=== PATIENT | female | born 1940 | race Caucasian/White ===

== ENCOUNTER 2016-08-29 18:36 | Emergency (ER) | payer OTHER ==
[2016-08-29 18:43] VITALS: BP 169/92; PULSE 78; TEMP 98; BMI 31.3
--- NOTE | 2016-08-29 19:26 | PDOC ---
History of Present Illness - General History Source: Patient Exam Limitations: No Limitations - History of Present Illness Initial Comments: 08/29/16 19:27 The patient is a 76 year old female, with a significant past medical history of psoriatic arthritis, fibromyalgia, HTN, , who presents to the emergency department with blood in her left eye. The patient reports her eye started to fill with blood while she was conversing with her daughter. She denies her symptoms being brought on by a sneeze. She denies being on any blood thinners. She denies any visual changes. She denies any injury or trauma to her eye. She denies recent fevers, chills, headache or dizziness. She denies recent nausea, vomit, diarrhea or constipation. She denies recent dysuria, frequency, urgency or hematuria. She denies recent chest pain or shortness of breath. Allergies: NKA Past surgical history: None reported. <Elan Jones - Last Filed: 08/29/16 19:27> <Alvaro Hankins - Last Filed: 08/30/16 05:19> - General Chief Complaint: Eye Problem Stated Complaint: BLOOD IN EYE Time Seen by Provider: 08/29/16 19:25 Past History <Elan Jones - Last Filed: 08/29/16 19:27> - Past Medical History Thyroid Disease: Yes Other medical history: FIBROMYALGA - Psycho/Social/Smoking Cessation Hx Anxiety: No Suicidal Ideation: No Smoking History: Never smoked Hx Alcohol Use: No Drug/Substance Use Hx: Yes Substance Use Type: Alcohol <Alvaro Hankins - Last Filed: 08/30/16 05:19> - Past Medical History Allergies/Adverse Reactions: Allergies Allergy/AdvReac Type Severity Reaction Status Date / Time No Known Allergies Allergy Unverified 08/29/16 19:24 Home Medications: Ambulatory Orders Amlodipine Besylate 5 mg PO DAILY 08/29/16 Atenolol 08/29/16 Cyclobenzaprine HCl [Flexeril 10 mg] 10 mg PO HS 08/29/16 Cyclosporine [Restasis] 1 each OP DAILY 08/29/16 Levothyroxine Sodium [Synthroid] 88 mcg PO DAILY 08/29/16 Review of Systems - Review of Systems Able to Perform ROS?: Yes Comments:: 08/29/16 19:27 GENERAL/CONSTITUTIONAL: No: fever, chills, weakness, loss of appetite. HEAD, EYES, EARS, NOSE AND THROAT: +blood in the left eye. No: change in vision , ear pain, discharge, sore throat, throat swelling. CARDIOVASCULAR: No: chest pain, lightheadedness, palpitations, syncope RESPIRATORY: No: cough, shortness of breath, wheezing, hemoptysis, stridor. GASTROINTESTINAL: No: nausea, vomiting, diarrhea, abdominal cramping, rectal bleeding, constipation. GENITOURINARY: No: dysuria, hematuria, frequency, urgency, flank pain. MUSCULOSKELETAL: No: back pain, neck pain, joint pain, muscle swelling or pain SKIN : No: lesions, pallor, rash or easy bruising. NEUROLOGIC: No: headache, vertigo, paresthesias, weakness ENDOCRINE: No: unexplained weight gain or loss HEMATOLOGIC/LYMPHATIC: No: anemia, easy bleeding, swelling nodes. <Elan Jones - Last Filed: 08/29/16 19:27> *Physical Exam - Vital Signs Last Vital Signs Temp Pulse Resp BP Pulse Ox 98 F 78 18 169/92 100 08/29/16 18:37 08/29/16 18:37 08/29/16 18:37 08/29/16 18:37 08/29/16 18:37 - Physical Exam Comments: 08/29/16 19:28 GENERAL: The patient is in no acute distress. HEAD: Normal with no signs of trauma. EYES: PERRLA, EOMI, sclera anicteric, conjunctiva clear. ENT: 1cm subconjunctival hemorrhage. Ears normal, nares patent, oropharynx clear without exudates. Moist mucous membranes. NEUROLOGICAL: Cranial nerves II through XII grossly intact. Normal speech. No focal neurological deficits. MUSCULOSKELETAL: Back non-tender to palpation, no CVA tenderness SKIN: Warm, Dry, normal turgor, no rashes or lesions noted. <Elan Jones - Last Filed: 08/29/16 19:27> - Vital Signs Last Vital Signs Temp Pulse Resp BP Pulse Ox 98 F 78 18 169/92 100 08/29/16 18:37 08/29/16 18:37 08/29/16 18:37 08/29/16 18:37 08/29/16 18:37 <Alvaro Hankins - Last Filed: 08/30/16 05:19> Medical Decision Making - Medical Decision Making 08/30/16 05:18 subconjunctival hemorrhage no acute mgmt needed <Alvaro Hankins - Last Filed: 08/30/16 05:19> *DC/Admit/Observation/Transfer - Attestations Scribe Attestion: 08/29/16 19:28 Documentation prepared by Elan Jones, acting as medical director occupational health for Alvaro Hankins MD. <Elan Jones - Last Filed: 08/29/16 19:27> <Alvaro Hankins - Last Filed: 08/30/16 05:19> Diagnosis at time of Disposition: Subconjunctival hemorrhage Qualifiers: Laterality: left Qualified Code(s): H11.32 - Conjunctival hemorrhage, left eye - Discharge Dispostion Disposition: HOME Condition at time of disposition: Stable - Patient Instructions Printed Discharge Instructions: DI for Subconjunctival Hemorrhage
== END 2016-08-29 19:27 | disposition home or self-care (01) ==
LOC: FER 18:36
DX: H11.32 Conjunctival hemorrhage, left eye (principal); I10 Essential (primary) hypertension; L40.50 Arthropathic psoriasis, unspecified; M79.7 Fibromyalgia; E07.9 Disorder of thyroid, unspecified
CPT/HCPCS: 99282-25